=== PATIENT | male | born 1960 | race Caucasian/White ===

== ENCOUNTER 2025-06-09 11:14 | Outpatient (CLI) | payer MEDICARE | END 2025-06-09 11:15 | disposition home or self-care (01) | LOC: CSHWCC 11:14 | PROVIDERS: ATTEND Nurse Practitioner Family | DX: E11.622 Type 2 diabetes mellitus with other skin ulcer (principal); L98.499 Non-pressure chronic ulcer of skin of other sites with unspecified severity | CPT/HCPCS: 11042 ==

== ENCOUNTER 2025-06-17 10:28 | Outpatient (CLI) | payer MEDICARE | END 2025-06-17 10:29 | disposition home or self-care (01) | LOC: CSHWCC 10:28 | PROVIDERS: ATTEND Nurse Practitioner Family | DX: L89.893 Pressure ulcer of other site, stage 3 (principal); E11.622 Type 2 diabetes mellitus with other skin ulcer; L98.499 Non-pressure chronic ulcer of skin of other sites with unspecified severity; Z89.512 Acquired absence of left leg below knee | CPT/HCPCS: 11042; G0463; 99213 ==

== ENCOUNTER 2025-06-22 11:13 | Outpatient (CLI) | payer MEDICARE | END 2025-06-22 11:14 | disposition home or self-care (01) | LOC: CSHWCC 11:13 | PROVIDERS: ATTEND Nurse Practitioner Family | DX: L89.893 Pressure ulcer of other site, stage 3 (principal); S81.811D Laceration without foreign body, right lower leg, subsequent encounter; E11.622 Type 2 diabetes mellitus with other skin ulcer; Z89.512 Acquired absence of left leg below knee | CPT/HCPCS: 11042 ==

== ENCOUNTER 2025-07-13 09:23 | Outpatient (CLI) | payer MEDICARE | END 2025-07-13 09:24 | disposition home or self-care (01) | LOC: CSHWCC 09:23 | PROVIDERS: ATTEND Nurse Practitioner Family | DX: L89.893 Pressure ulcer of other site, stage 3 (principal); S81.811D Laceration without foreign body, right lower leg, subsequent encounter; E11.622 Type 2 diabetes mellitus with other skin ulcer; L98.499 Non-pressure chronic ulcer of skin of other sites with unspecified severity; Z89.512 Acquired absence of left leg below knee | CPT/HCPCS: 11042; G0463; 99213 ==

== ENCOUNTER 2025-07-27 10:08 | Outpatient (CLI) | payer MEDICARE | END 2025-07-27 10:09 | disposition home or self-care (01) | LOC: CSHWCC 10:08 | PROVIDERS: ATTEND Nurse Practitioner Family | DX: L89.893 Pressure ulcer of other site, stage 3 (principal); S81.811D Laceration without foreign body, right lower leg, subsequent encounter; E11.622 Type 2 diabetes mellitus with other skin ulcer; L98.499 Non-pressure chronic ulcer of skin of other sites with unspecified severity; Z89.512 Acquired absence of left leg below knee | CPT/HCPCS: 11042 ==

== ENCOUNTER 2025-08-03 10:13 | Outpatient (CLI) | payer MEDICARE | END 2025-08-03 10:14 | disposition home or self-care (01) | LOC: CSHWCC 10:13 | PROVIDERS: ATTEND Nurse Practitioner Family | DX: L89.893 Pressure ulcer of other site, stage 3 (principal); S81.811D Laceration without foreign body, right lower leg, subsequent encounter; E11.622 Type 2 diabetes mellitus with other skin ulcer; L98.499 Non-pressure chronic ulcer of skin of other sites with unspecified severity; Z89.512 Acquired absence of left leg below knee | CPT/HCPCS: 11042 ==

== ENCOUNTER 2025-08-22 10:29 | Outpatient (CLI) | payer MEDICARE | END 2025-08-22 10:30 | disposition home or self-care (01) | LOC: CSHWCC 10:29 | PROVIDERS: ATTEND Nurse Practitioner Family | DX: L89.893 Pressure ulcer of other site, stage 3 (principal); E11.622 Type 2 diabetes mellitus with other skin ulcer; L98.499 Non-pressure chronic ulcer of skin of other sites with unspecified severity; Z89.512 Acquired absence of left leg below knee | CPT/HCPCS: 11042 ==